=== PATIENT | male | born 1960 | race Caucasian/White ===

== ENCOUNTER → 2025-06-09 | Outpatient (CLI) | payer MEDICARE ==
[~2025-06-09] MED LIST: ALFU10TA23 PO; ASCO10003 PO; ASPI81TA90 PO; BUPR-670 PO; CYMB60CA4 PO; FENO50CA PO; FERR325T3 PO; FINA5TAB2 PO; GLUC1CAP9 PO; MONT10TA97 PO; MULTCAP PO; OMEG100011 PO; PRIL20CA9 PO; RAMI5CAP60 PO; SIMV20TA22 PO; TRAZ-252 PO; VIBRYD PO; VITA500C24 PO; [UNRECOGNIZED DRUG - CODE] PO
== END ==
LOC: M RAD 08:29
PROVIDERS: ATTEND Physician Assistant
DX: I71.43 Infrarenal abdominal aortic aneurysm, without rupture (principal)